=== PATIENT | male | born 1970 | race Caucasian/White ===

== ENCOUNTER 2017-01-05 10:09 | Outpatient (CLI) | payer MEDICAID ==
--- NOTE | 2017-01-05 13:38 | XRAY Report ---
FOUR VIEW RIGHT KNEE: 01/05/2017 CLINICAL INDICATION: Pain. FINDINGS: AP, lateral, bilateral oblique views of the right knee demonstrate previous ACL repair. Th ere is no evidence of acute fracture. Minimal osteoarthritis is present, with small osteophytes. IMPRESSION: MINIMAL OSTEOARTHRITIS. PREVIOUS ACL REPAIR. JOB #: [id number] EXT JOB #:[id number]
== END 2017-01-05 10:10 | disposition home or self-care (01) ==
LOC: DI.S 10:09
PROVIDERS: ATTEND Nurse Practitioner Family
DX: M17.11 Unilateral primary osteoarthritis, right knee (principal)

== ENCOUNTER 2020-03-28 13:55 | Inpatient (IN) | payer MEDICAID ==
[2020-03-28 14:54] LABS: BASOPHILS # (AUTO) 0.1 10^3/uL (0.0-0.1); BASOPHILS % (AUTO) 0.7 %; EOSINOPHILS # (AUTO) 0.2 10^3/uL (0.0-0.7); EOSINOPHILS % (AUTO) 1.7 %; HGB - HEMOGLOBIN 14.7 g/dL (14.0-18.0); LYMPHOCYTES # (AUTO) 1.6 10^3/uL (1.5-3.5); LYMPHOCYTES % (AUTO) 16.9 %; MEAN CORPUSCULAR HGB CONC 35.9 g/dL (32.0-36.0); MEAN CORPUSCULAR VOLUME 91.9 fL (80.0-94.0); MEAN PLATELET VOLUME 9.6 fL (7.4-11.4); MONOCYTES # (AUTO) 0.8 10^3/uL (0.0-1.0); MONOCYTES % (AUTO) 7.9 %; NEUTROPHILS # (AUTO) 6.9 10^3/uL (1.5-6.6); NEUTROPHILS % (AUTO) 72.3 %; PLT - PLATELET COUNT 232 10^3/uL (130-450); RED BLOOD COUNT 4.45 10^6/uL (4.70-6.10); RED CELL DISTRIBUTION WIDTH 11.4 % (12.0-15.0); WHITE BLOOD COUNT 9.6 x10^3/uL (4.8-10.8)
[2020-03-28 15:07] LABS: ALBUMIN 4.4 g/dL (3.2-5.5); ALBUMIN/GLOBULIN RATIO 1.3 (1.0-2.2); BILIRUBIN,TOTAL 1.1 mg/dL (0.2-1.0); CALCIUM 9.3 mg/dL (8.5-10.3); CREATININE 0.6 mg/dL (0.6-1.2); TOTAL PROTEIN 7.8 g/dL (6.7-8.2)
[2020-03-28] MEDS ORDERED: KETOROLAC 30 MG/ML VIAL IVP STA (16:13)
--- NOTE | 2020-03-28 16:16 | ED Physician Documentation ---
PD HPI ABD PAIN - Stated complaint Stated Complaint: ABD PX - LOWER - Chief complaint Chief Complaint: Abd Pain - History obtained from History obtained from: Patient - History of Present Illness Timing - onset: Today Timing - duration: Days (3) Timing - details: Gradual onset Pain level max: 8 Pain level now: 6 Quality: Cramping, Pain Location: All over / everywhere Radiation: No: Chest, , Lower back, Left flank, Left shoulder, Right flank, Right shoulder, Upper back Improved by: Other (nothing) Worsened by: Other (nothing) Associated symptoms: Nausea, Constipation. No: Fever, Vomiting, Hematemesis, Diarrhea, Melena, Hematochezia, Dysuria Similar symptoms before: Has not had sx before Recently seen: Not recently seen - Additional information Additional information: Diffuse abd cramping, mainly at night. States uses marijuana daily. No vomiting. No fevers. Review of Systems Ten Systems: 10 systems reviewed and negative Constitutional: denies: Fever, Chills Respiratory: denies: Cough GI: denies: Nausea, Vomiting, Hematemesis, Bloody / black stool : denies: Dysuria, Frequency Skin: denies: Rash Musculoskeletal: denies: Neck pain Neurologic: denies: Headache PD PAST MEDICAL HISTORY - Past Medical History Cardiovascular: None Respiratory: None Endocrine/Autoimmune: None GI: GERD, Other : None HEENT: None Psych: None Musculoskeletal: None Derm: Other - Past Surgical History Past Surgical History: Yes General: Other Ortho: ACL reconstruction - Present Medications Home Medications: Ambulatory Orders Medication Instructions Recorded Confirmed Hydrocodone/Acetaminophen 1 - 2 each PO Q6H PRN #15 tablet 01/10/15 [Hydrocodon-Acetaminophen 5-325] - Allergies Allergies/Adverse Reactions: Allergies Allergy/AdvReac Type Severity Reaction Status Date / Time Penicillins Allergy Rash Verified 03/28/20 14:13 - Social History Does the pt smoke?: No Smoking Status: Former smoker Does the pt drink ETOH?: Yes Does the pt have substance abuse?: No - Immunizations Immunizations are current?: Yes - POLST Patient has POLST: No PD ED PE NORMAL - Vitals Vital signs reviewed: Yes - General General: Alert and oriented X 3, No acute distress, Well developed/nourished - HEENT HEENT: Moist mucous membranes - Neck Neck: Supple, no meningeal sign - Cardiac Cardiac: RRR - Respiratory Respiratory: No respiratory distress, Clear bilaterally - Abdomen Abdomen: Soft, Non tender, Non distended - Back Back: No CVA TTP, No spinal TTP - Derm Derm: Warm and dry - Extremities Extremities: No edema - Neuro Neuro: Alert and oriented X 3 - Psych Psych: Normal mood, Normal affect Results - Vitals Vitals: Vital Signs - 24 hr 03/28/20 03/28/20 03/28/20 14:08 14:13 16:13 Temperature 36.9 C 36.8 C Heart Rate 105 H 105 H 98 Respiratory 18 18 18 Rate Blood Pressure 128/88 H 128/88 H 126/82 H O2 Saturation 97 98 99 03/28/20 18:00 Temperature 36.7 C Heart Rate 93 Respiratory 18 Rate Blood Pressure 128/83 H O2 Saturation 99 Oxygen O2 Source Room air - Labs Labs: Laboratory Tests 03/28/20 03/28/20 03/28/20 14:49 14:49 16:50 WBC 9.6 RBC 4.45 L Hgb 14.7 Hct 40.9 L MCV 91.9 MCH 33.0 H MCHC 35.9 RDW 11.4 L Plt Count 232 MPV 9.6 Neut # (Auto) 6.9 H Lymph # (Auto) 1.6 [place] # (Auto) 0.8 Eos # (Auto) 0.2 Baso # (Auto) 0.1 Absolute Nucleated RBC 0.00 Nucleated RBC % 0.0 Sodium 134 L Potassium 3.8 Chloride 95 L Carbon Dioxide 26 Anion Gap 13.0 BUN 5 L Creatinine 0.6 Estimated GFR (MDRD) 144 Glucose 97 Calcium 9.3 Total Bilirubin 1.1 H AST 30 ALT 39 Alkaline Phosphatase 62 Total Protein 7.8 Albumin 4.4 Globulin 3.4 Albumin/Globulin Ratio 1.3 Lipase 28 Urine Color YELLOW Urine Clarity CLEAR Urine pH 6.0 Ur Specific [place] <=1.005 Urine Protein NEGATIVE Urine Glucose (UA) NEGATIVE Urine Ketones NEGATIVE Urine Occult Blood NEGATIVE Urine Nitrite NEGATIVE Urine Bilirubin NEGATIVE Urine Urobilinogen 0.2 (NORMAL) Ur Leukocyte Esterase NEGATIVE Ur Microscopic Review NOT INDICATED Urine Culture Comments NOT INDICATED - Rads (name of study) CT abd/pelvis Radiology: Prelim report reviewed, EMP read contemporaneously, See rad report PD MEDICAL DECISION MAKING - ED course Complexity details: reviewed results, re-evaluated patient, considered differential, d/w patient, d/w instructional systems design consultant ED course: Patient with short segment sigmoid wall thickening and an intramural low-density rim enhancing lesion. Discussed with Dr. Thibodeaux, general surgery who will place in observation and do a colonoscopy in the morning. We discussed antibiot ics and will hold at this time. This document was made in part using voice recognition software. While efforts are made to proofread this document, sound alike and grammatical errors may occur. IMPRESSION: Short segment sigmoid wall thickening with and associated intramural low density rim-enhancing mass/collection measuring up to 1.6 cm. Differential considerations include either an intramural abscess in the setting of diverticulitis or a necrotic malignancy. Sigmoidoscopy/colonoscopy is strongly recommended, particularly if there is no clinical evidence of infecti on. Departure - Departure Disposition: ED Place in Observation Clinical Impression: Colonic mass Condition: Stable Discharge Date/Time: 03/28/20 18:45
[2020-03-28] MEDS ORDERED: IOVERSOL 320 100 ML VIAL IVP ONE ×2 (16:23→16:30)
--- NOTE | 2020-03-28 16:44 | CT Report ---
PROCEDURE: Abdomen/Pelvis W INDICATIONS: Diffuse abdominal pain and cramping CONTRAST: IV CONTRAST: Optiray 320 ml: 100 PO CONTRAST: *NO PO CONTRAST TECHNIQUE: After the administration of iodinated contrast, 5 mm thick sections acquired from the diaphragms to t he symphysis. 5 mm thick coronal and sagittal reformats were acquired. For radiation dose reduction , the following was used: automated exposure control, adjustment of mA and/or kV according to patien t size. COMPARISON: None FINDINGS: Image quality: Excellent. ABDOMEN: Lung bases: Lung bases are clear. Heart size is normal. Solid organs: Liver and spleen are normal in size and enhancement. Gallbladder unremarkable. Bilia ry system is non dilated. Pancreas enhances normally. No adrenal nodules. Kidneys demonstrate norm al size and enhancement, without hydronephrosis. Peritoneum and bowel: There is a short segment of the mid sigmoid colon which demonstrates eccentric wall thickening with very mild adjacent inflammatory fat stranding and fluid. There is an intramural low density rim-enhancing mass/collection measuring approximately 1.6 in meters maximum axial dimensi on and 1.5 cm craniocaudal (series 6 images, series 3 image 52). Nodes and vessels: No retroperitoneal or mesenteric adenopathy by size criteria. Aorta and inferior vena cava are normal in size. Miscellaneous: No ventral hernias. PELVIS: Genitourinary: Bladder wall thickness is normal. Prostate unremarkable. Miscellaneous: Threshold enlarged pelvic or neural lymph node. No inguinal hernia. Bones: No suspicious bony lesions. No vertebral body compression fractures. IMPRESSION: Short segment sigmoid wall thickening with and associated intramural low density rim-enhancing mass/c ollection measuring up to 1.6 cm. Differential considerations include either an intramural abscess in the setting of diverticulitis or a necrotic malignancy. Sigmoidoscopy/colonoscopy is strongly recomm ended, particularly if there is no clinical evidence of infection. Reviewed by: Surya Miller MD on 03/28/2020 4:43 PM PDT Approved by: Surya Miller MD on 03/28/2020 4:43 PM PDT Station ID: [id number]
[2020-03-28 16:55] LABS: BILIRUBIN,URINE NEGATIVE (NEGATIVE); GLUCOSE, URINE (UA) NEGATIVE (NEGATIVE); KETONES,URINE (UA) NEGATIVE (NEGATIVE); LEUKOCYTE ESTERASE, URINE NEGATIVE (NEGATIVE); NITRITE,URINE NEGATIVE (NEGATIVE); OCCULT BLOOD,URINE NEGATIVE (NEGATIVE); PROTEIN,URINE NEGATIVE (NEGATIVE); UROBILINOGEN,URINE 0.2 (NORMAL) E.U./dL (NORMAL)
[2020-03-28 16:59] LABS: CLARITY,URINE CLEAR (CLEAR)
[2020-03-28] MEDS ORDERED: methocarbamoL 500 MG TABLET PO PRN (18:10)
[2020-03-28] MEDS ORDERED: METOCLOPRAMIDE 10 MG/2 ML VIAL IVP PRN ×2 (18:10→19:44)
[2020-03-28] MEDS ORDERED: SODIUM CHLORIDE FLUSH 0.9% 10 ML SYRINGE IVP PRN (18:10)
[2020-03-28] MEDS ORDERED: ONDANSETRON 4 MG/2 ML VIAL IVP PRN ×2 (18:10→22:00)
[2020-03-28] MEDS ORDERED: PEG 3350/NA SULF,BICARB,CL/KCL 4,000 ML BOTTLE PO ONE ×2 (18:18)
--- NOTE | 2020-03-28 18:20 | HISTORY & PHYSICAL EXAMINATION ---
Chief Complaint - Chief Complaint Chief Complaint: Abdominal pain and concerning CT scan for malignancy versus mural abscess f Abdominal Pain HPI - Admitted From Admitted from: ED - History Obtained From History obtained from: Patient Exam limitations: No limitations - History of Present Illness Severity at the worst: Moderate Pain Quality: Dull, Aching, Throbbing Timing: Gradual onset HPI Comment/Other: 49-year-old male who presents to ER after several days of worsening abdominal discomfort. Abdominal pain and concerning CT scan for malignancy versus mural abscess from diverticular disease. No family history of colorectal cancer, no family history of inflammatory bowel disease. No recent sick contacts or other concerning features. Patient denies any bright red blood per rectum or other recent changes, however he does indeed report a significant change in caliber of stool over the last several days. He reports most of the pain is in the evening and ultimately is intolerable, progressively worsening these last few days for which inspired his ER visit. Patient is a non-smoker, drinks only socially. Reports only marijuana use infrequently. PMH/PSH - Past Medical History Cardiovascular: positive: None Respiratory: positive: None Endocrine/Autoimmune: positive: None GI: positive: GERD, Other : positive: None HEENT: positive: None Psych: positive: None Musculoskeletal: positive: None Derm: positive: Other MRSA Hx?: No - Past Surgical History General: positive: Other Ortho: positive: ACL reconstruction Social & Family Hx - Social History Does the pt smoke?: No Smoking Status: Former smoker Does the pt drink ETOH?: Yes Does the pt have substance abuse?: No Substance Use and Type: Marijuana - POLST Patient has POLST: No Meds/Allgy - Home Medications Home Medications: Ambulatory Orders Medication Instructions Recorded Confirmed Cyclobenzaprine [Flexeril] 10 mg PO TID PRN 03/29/20 - Allergies Allergies/Adverse Reactions: Allergies Allergy/AdvReac Type Severity Reaction Status Date / Time Penicillins Allergy Rash Verified 03/28/20 14:13 Review of Systems - Constitutional Constitutional: reports: Fatigue - Cardiovascular Cariovascular: denies: Irregular heart rate - Respiratory Respiratory: denies: Cough, Sputum production, Wheezing, Snoring, Hemoptysis - Gastrointestinal Gastrointestinal: reports: Abdominal pain, Abdominal distention. denies: Black stools, Bloody stools, Nausea, Vomiting - Genitourinary Genitourinary: denies: Dysuria Exam - Vital Signs Vital Signs: Vital Signs x48h Temp Pulse Resp BP Pulse Ox 03/28/20 18:00 36.7 C 93 18 128/83 H 99 03/28/20 16:13 36.8 C 98 18 126/82 H 99 03/28/20 14:13 105 H 18 128/88 H 98 03/28/20 14:08 36.9 C 105 H 18 128/88 H 97 - Physical Exam General Appearance: positive: No acute distress, Alert, Mild distress Eyes Bilateral: positive: Normal inspection, PERRL, EOMI ENT: positive: ENT inspection nml Neck: positive: Nml inspection Respiratory: positive: Chest non-tender, No respiratory distress, Breath sounds nml. negative: Wheezes, Rales, Rhonchi Cardiovascular: positive: Regular rate & rhythm Abdomen: positive: Tenderness. negative: Guarding, Rebound Extremities: positive: Non-tender, Full ROM Neurologic/Psychiatric: positive: Oriented x3, CN's nml (2-12) Results - Lab Results Fish Bones: 03/28/20 14:49 03/28/20 14:49 Other Lab Results: Lab Results x24hrs 03/28/20 03/28/20 03/28/20 Range/Units 16:50 14:49 14:49 WBC 9.6 (4.8-10.8) x10^3/uL RBC 4.45 L (4.70-6.10) 10^6/uL Hgb 14.7 (14.0-18.0) g/dL Hct 40.9 L (42.0-52.0) % MCV 91.9 (80.0-94.0) fL MCH 33.0 H (27.0-31.0) pg MCHC 35.9 (32.0-36.0) g/dL RDW 11.4 L (12.0-15.0) % Plt Count 232 (130-450) 10^3/uL MPV 9.6 (7.4-11.4) fL Neut # (Auto) 6.9 H (1.5-6.6) 10^3/uL Lymph # (Auto) 1.6 (1.5-3.5) 10^3/uL [place] # (Auto) 0.8 (0.0-1.0) 10^3/uL Eos # (Auto) 0.2 (0.0-0.7) 10^3/uL Baso # (Auto) 0.1 (0.0-0.1) 10^3/uL Absolute Nucleated RBC 0.00 x10^3/uL Nucleated RBC % 0.0 /100WBC Sodium 134 L (135-145) mmol/L Potassium 3.8 (3.5-5.0) mmol/L Chloride 95 L (101-111) mmol/L Carbon Dioxide 26 (21-32) mmol/L Anion Gap 13.0 (6-13) BUN 5 L (6-20) mg/dL Creatinine 0.6 (0.6-1.2) mg/dL Estimated GFR (MDRD) 144 (>89) Glucose 97 (70-100) mg/dL Calcium 9.3 (8.5-10.3) mg/dL Total Bilirubin 1.1 H (0.2-1.0) mg/dL AST 30 (10-42) IU/L ALT 39 (10-60) IU/L Alkaline Phosphatase 62 (42-121) IU/L Total Protein 7.8 (6.7-8.2) g/dL Albumin 4.4 (3.2-5.5) g/dL Globulin 3.4 (2.1-4.2) g/dL Albumin/Globulin Ratio 1.3 (1.0-2.2) Lipase 28 (22-51) U/L Urine Color YELLOW Urine Clarity CLEAR (CLEAR) Urine pH 6.0 (5.0-7.5) PH Ur Specific [place] <=1.005 (1.002-1.030) Urine Protein NEGATIVE (NEGATIVE) mg/dL Urine Glucose (UA) NEGATIVE (NEGATIVE) mg/dL Urine Ketones NEGATIVE (NEGATIVE) mg/dL Urine Occult Blood NEGATIVE (NEGATIVE) Urine Nitrite NEGATIVE (NEGATIVE) Urine Bilirubin NEGATIVE (NEGATIVE) Urine Urobilinogen 0.2 (NORMAL) (NORMAL) E.U./dL Ur Leukocyte Esterase NEGATIVE (NEGATIVE) Ur Microscopic Review NOT INDICATED Urine Culture Comments NOT INDICATED - Diagnostic Imaging Results Diagnostic Imaging Results: positive: Final report reviewed Sepsis Event Note (H) - Evaluation Current Stage of Sepsis: Sepsis Possible source of Sepsis: positive: GI tract/intra-abdominal Impression/Plan - Problem List Problem List: 49-year-old male with CT finding as per EMR. Essentially mural abscess within the sigmoid colon. Abdominal pain and concerning CT scan for malignancy versus mural abscess from diverticular disease. Patient with mural fluid collection within the sigmoid colon together with sigmoid diverticulosis. Concern for malignancy versus perforated contained diverticulitis. In this type for insulin will be crucial to ascertain if this is malignancy as this would require urgent operative intervention to avert intra-abdominal seeding of a currently contained malignancy. In the setting of diverticular disease we would proceed with oral likely IV antibiotics and plan an interval colectomy hopefully in the absence of proximal diversion. Plan going forward as follows: 1. Bowel rest IV fluids IV antibiotics 2. Plan a.m. colonoscopy
[2020-03-28] MEDS ORDERED: metroNIDAZOLE 500 MG/100 ML 500 MG/100 ML BAG IV SCH (19:00)
[2020-03-28] MEDS ORDERED: D5NS W/20 MEQ KCL 1,000 ML IV SCH (19:00)
[2020-03-28] MEDS ORDERED: ACETAMINOPHEN 1,000 MG/100 ML 100 ML IV SCH (19:00)
[2020-03-28] MEDS ORDERED: CIPROFLOXACIN 400 MG/200 ML 400 MG/200 ML BAG IV SCH (19:00)
[2020-03-28] MEDS: D5NS W/20 MEQ KCL 1,000 ML IV SCH (20:23)
[2020-03-28] MEDS: polyethylene glycoL 3350 17 GM PACKET PO SCH (20:23)
[2020-03-28] MEDS: DOCUSATE SODIUM 100 MG CAPSULE PO SCH (20:23)
[2020-03-28] MEDS ORDERED: polyethylene glycoL 3350 17 GM PACKET PO SCH (21:00)
[2020-03-28] MEDS ORDERED: DOCUSATE SODIUM 100 MG CAPSULE PO SCH (21:00)
[2020-03-28] MEDS ORDERED: HEPARIN 5,000 UNIT/ML VIAL SUBQ SCH (22:00)
[2020-03-28] MEDS: HEPARIN 5,000 UNIT/ML VIAL SUBQ SCH (22:38)
[2020-03-28] MEDS: LORazepam 2 MG/ML VIAL IVP PRN (22:39)
[2020-03-29] MEDS: ACETAMINOPHEN 1,000 MG/100 ML 100 ML IV SCH ×4 (00:51→18:46)
[2020-03-29] MEDS ORDERED: SODIUM CHLORIDE FLUSH 0.9% 10 ML SYRINGE IVP SCH (01:00)
[2020-03-29] MEDS: metroNIDAZOLE 500 MG/100 ML 500 MG/100 ML BAG IV SCH ×3 (03:08→20:35)
[2020-03-29] MEDS: SODIUM CHLORIDE FLUSH 0.9% 10 ML SYRINGE IVP SCH ×3 (04:23→16:23)
[2020-03-29] MEDS: LORazepam 2 MG/ML VIAL IVP PRN ×3 (04:38→22:16)
[2020-03-29] MEDS: SODIUM CHLORIDE FLUSH 0.9% 10 ML SYRINGE IVP PRN ×2 (04:39→13:26)
[2020-03-29] MEDS: D5NS W/20 MEQ KCL 1,000 ML IV SCH ×2 (05:50→17:36)
[2020-03-29] MEDS: HEPARIN 5,000 UNIT/ML VIAL SUBQ SCH ×3 (06:06→22:16)
[2020-03-29] MEDS: CIPROFLOXACIN 400 MG/200 ML 400 MG/200 ML BAG IV SCH ×2 (06:48→19:28)
[2020-03-29] MEDS ORDERED: PROPOFOL 500 MG/50 ML 500 MG/50 ML VIAL ONE (08:43)
[2020-03-29] MEDS ORDERED: ePHEDrine 50 MG/ML VIAL IVP ONE (08:44)
--- NOTE | 2020-03-29 08:48 | ANESTHESIA ---
Pre-Anesthesia VS, & Labs - Diagnosis Abdominal pain, sigmoid mass vs. abscess, GERD, PCN allergy - Procedure Colonoscopy Vital Signs: Temp Pulse Resp BP Pulse Ox 37.1 C 66 16 111/75 98 03/29/20 07:42 03/29/20 07:42 03/29/20 07:42 03/29/20 07:42 03/29/20 07:42 Height 5 ft 7 in Weight (kg) 61.235 kg Body Mass Index 21.1 - Lab Results Current Lab Results: Laboratory Tests 03/28/20 14:49: Sodium 134 L, Potassium 3.8, Chloride 95 L, Carbon Dioxide 26, Anion Gap 13.0, BUN 5 L, Creatinine 0.6, Estimated GFR (MDRD) 144, Glucose 97, Calcium 9.3, Total Bilirubin 1.1 H, AST 30, ALT 39, Alkaline Phosphatase 62, T otal Protein 7.8, Albumin 4.4, Globulin 3.4, Albumin/Globulin Ratio 1.3, Lipase 28 03/28/20 14:49: WBC 9.6, RBC 4.45 L, Hgb 14.7, Hct 40.9 L, MCV 91.9, MCH 33.0 H, MCHC 35.9, RDW 11.4 L, Plt Count 232, MPV 9.6, Neut # (Auto) 6.9 H, Lymph # (Auto) 1.6, [place] # (Auto) 0.8, Eos # (Auto) 0.2, Baso # (Auto) 0.1, Absolute Nucleated RBC 0.00, Nucleated RBC % 0.0 Fish Bones: 03/28/20 14:49 03/28/20 14:49 Home Medications and Allergies Active Medications Docusate Sodium (Colace 100mg Capsule) 100 mg PO BID [facility] Last Admin: 03/28/20 20:23 Dose: 100 mg Documented by: Heparin Sodium (Porcine) () 5,000 unit SUBQ TID [facility] Last Admin: 03/29/20 06:06 Dose: 5,000 unit Documented by: Potassium Chloride/Dextrose/Sod Cl () 1,000 mls @ 125 mls/hr IV .Q8H [facility] Last Infusion: 03/29/20 07:48 Dose: 125 mls/hr Documented by: Ciprofloxacin (Cipro 400 Mg/200 Ml) 400 mg in 200 mls @ 200 mls/hr IV Q12H [facility] Last Infusion: 03/29/20 07:48 Dose: Infused Documented by: Acetaminophen (Ofirmev) 100 mls @ 400 mls/hr IV Q6H [facility] Last Infusion: 03/29/20 06:37 Dose: Infused Documented by: Metronidazole (Flagyl 500 Mg/100 Ml) 500 mg in 100 mls @ 100 mls/hr IV Q8H [facility] Last Infusion: 03/29/20 04:08 Dose: Infused Documented by: Lorazepam (Ativan Inj (Vial)) 0.5 mg IVP Q6H PRN PRN Reason: Spasms/ANXIETY Last Admin: 03/29/20 04:38 Dose: 0.5 mg Documented by: Methocarbamol (Robaxin) 500 mg PO Q6HR PRN PRN Reason: Spasms Metoclopramide HCl (Reglan Inj) 10 mg IVP Q6HR PRN PRN Reason: Nausea / Vomiting Ondansetron HCl (Zofran Inj) 4 mg IVP Q6H PRN PRN Reason: Nausea / Vomiting Polyethylene Glycol (Miralax) 17 gm PO BID [facility] Last Admin: 03/28/20 20:23 Dose: 17 gm Documented by: Sodium Chloride (Normal Saline Flush 0.9%) 10 ml IVP 0100,0900,1700 [facility] Last Admin: 03/29/20 04:23 Dose: Not Given Documented by: Sodium Chloride (Normal Saline Flush 0.9%) 10 ml IVP PRN PRN PRN Reason: NEEDED PER PROVIDER ORDERS Last Admin: 03/29/20 04:39 Dose: 10 ml Documented by: Allergies/Adverse Reactions: Allergies Allergy/AdvReac Type Severity Reaction Status Date / Time Penicillins Allergy Rash Verified 03/28/20 14:13 Anes History & Medical History - Anesthetic History Anesthesia Complications: reports: No previous complications Family history of Anesthesia Complications: Denies Family history of Malignant Hyperthermia: Denies - Medical History Cardiovascular: reports: None Pulmonary: reports: None Gastrointestinal: reports: GERD, Other Urinary: reports: None Neuro: reports: None Musculoskeletal: reports: None Endocrine/Autoimmune: reports: None Blood Disorders: reports: None Skin: reports: Other Smoking Status: Former smoker Psychosocial: reports: No issues indicated - Surgical History Orthopedic: ACL reconstruction Plan Anesthesia Type: MAC Consent for Procedure(s) Verified and Reviewed: Yes Code Status: Attempt Resuscitation ASA classification: 2-Mild systemic disease Is this case an emergency?: Yes (Per surgeon)
[2020-03-29] MEDS: DOCUSATE SODIUM 100 MG CAPSULE PO SCH ×2 (09:29→20:35)
[2020-03-29] MEDS: polyethylene glycoL 3350 17 GM PACKET PO SCH ×2 (09:29→20:12)
[2020-03-29] MEDS ORDERED: PROPOFOL 200 MG/20 ML VIAL IVP ONE ×2 (10:10→18:15)
[2020-03-29] MEDS ORDERED: MIDAZOLAM 2 MG/2 ML VIAL IVP ONE ×2 (10:10→18:15)
--- NOTE | 2020-03-29 11:06 | ANESTHESIA POST OP EVALUATION ---
Anesthesia Post Eval - Post Anesthesia Eval Vitals: Last Vital Signs Temp 36.8 C 03/29/20 10:56 Pulse 59 L 03/29/20 10:56 Resp 18 03/29/20 10:56 BP 105/70 03/29/20 10:56 Pulse Ox 100 03/29/20 10:56 CV Function Including HR & BP: positive: Stable Pain Control: positive: Satisfactory Nausea & Vomiting: positive: Negative Mental Status: positive: Baseline Respiratory Status: Airway Patent Hydration Status: Satisfactory Anesthesia Complications: positive: None
--- NOTE | 2020-03-29 11:08 | PROVIDER PROGRESS NOTE ---
Progress Note 49-year-old male with recent onset of acute change in bowel habits, reporting narrowed caliber. Moreover patient complaining of significant abdominal discomfort. Imaging was concerning for either necrotic malignancy with contained perforation in the setting of a mural abscess versus diverticular disease. I would add to this the possibility of inflammatory bowel disease as well. Patient is status post colonoscopy with the following findings: 1. Normal terminal ileum, biopsies obtained 2. Significant sigmoid stricturing, benign-appearing, with extensive inflammatory changes consistent with diverticulitis, biopsied 3. Normal colon otherwise other than extensive tortuosity with sparse diverticulosis favoring the left 4. No bleeding appreciated In this setting we will proceed with bowel rest, IV antibiotics, given the absence of any ability to proceed with drainage in the setting of a mural abscess which would potentially propagate a colocutaneous fistula, we would be best served with consideration for IV antibiotics and interval reimaging. We will also consider resection given the patient's age and significance of his presentation. Hopefully we can defer this without necessary proximal diversion after an appropriate therapeutic course of IV antibiotics and time. Thus plan going forward is as follows: 1. Bowel rest, IV fluids, IV antibiotics. 2. Consideration for PICC line and outpatient antibiotics 3. Will likely necessitate interval resection, hopefully without proximal diversion
--- NOTE | 2020-03-29 15:09 | PHARMACY PROGRESS NOTE ---
- Best Possible Medication History Admit Date and Time: 03/28/201809 Processed by: Pharmacy Medication History completed: Yes Patient Interview: Completed Secondary Source(s): Pharmacy records, Insurance records As the person ultimately responsible for medication therapy, providers are able to order a medication from an existing home medication list in [facility] via the "Reconcile Routine" prior to Confirmation of that medication by technical support manager. Such practice is discouraged except when the physician, in their clinical judgment, deems that a medical need exists for a medication without regard to previous use.
[2020-03-29] MEDS: methocarbamoL 500 MG TABLET PO PRN ×2 (17:36→23:56)
[2020-03-30] MEDS: ACETAMINOPHEN 1,000 MG/100 ML 100 ML IV SCH ×4 (01:44→18:40)
[2020-03-30] MEDS: SODIUM CHLORIDE FLUSH 0.9% 10 ML SYRINGE IVP SCH ×4 (02:00→23:49)
[2020-03-30] MEDS: metroNIDAZOLE 500 MG/100 ML 500 MG/100 ML BAG IV SCH ×3 (02:51→18:41)
[2020-03-30] MEDS: D5NS W/20 MEQ KCL 1,000 ML IV SCH ×2 (05:08→16:23)
[2020-03-30] MEDS: HEPARIN 5,000 UNIT/ML VIAL SUBQ SCH ×3 (06:41→22:17)
[2020-03-30] MEDS: CIPROFLOXACIN 400 MG/200 ML 400 MG/200 ML BAG IV SCH ×2 (07:05→20:15)
[2020-03-30] MEDS: DOCUSATE SODIUM 100 MG CAPSULE PO SCH ×2 (09:32→19:22)
[2020-03-30] MEDS: polyethylene glycoL 3350 17 GM PACKET PO SCH ×2 (09:32→19:22)
[2020-03-30] MEDS: methocarbamoL 500 MG TABLET PO PRN ×3 (09:35→23:47)
--- NOTE | 2020-03-30 10:58 | PROVIDER PROGRESS NOTE ---
Progress Note Subjective: Patient postop day #1 status post lower endoscopy presenting with the following history. He has persistent abdominal cramping which is understandable in the setting of his significant stenosis. This is inflammatory and was ruled out for malignancy on lower endoscopy with results below. He remains on antibiotics and bowel rest. 49-year-old male with recent onset of acute change in bowel habits, reporting narrowed caliber. Moreover patient complaining of significant abdominal discomfort. Imaging was concerning for either necrotic malignancy with contained perforation in the setting of a mural abscess versus diverticular disease. I would add to this the possibility of inflammatory bowel disease as well. Patient is status post colonoscopy with the following findings: 1. Normal terminal ileum, biopsies obtained 2. Significant sigmoid stricturing, benign-appearing, with extensive inflamma tory changes consistent with diverticulitis, biopsied 3. Normal colon otherwise other than extensive tortuosity with sparse diverticulosis favoring the left 4. No bleeding appreciated Objective Afebrile vital signs are stable Alert awake and oriented x3 Lungs clear to auscultation bilaterally Regular rate and rhythm Abdomen soft nontender diffusely, tender to deep palpation in the left lower quadrant, no rebound no guarding Moving all extremities no sensorimotor deficits Assessment and plan 49-year-old male presenting with perforated complicated diverticulitis with intramural abscess. Initial concerns for potential malignancy ruled out by colonoscopy for which he is postoperative day #1. In this setting we will proceed with bowel rest, IV antibiotics, given the absence of any ability to proceed with drainage in the setting of a mural abscess which would potentially propagate a colocutaneous fistula, we would be best served with consideration for IV antibiotics and interval reimaging. We will also consider resection given the patient's age and significance of his presentation. Hopefully we can defer this without necessary proximal diversion after an appropriate therapeutic course of IV antibiotics and time. Thus plan going forward is as follows: 1. Bowel rest, IV fluids, IV antibiotics. 2. Consideration for PICC line and outpatient antibiotics 3. Proceed with CAT scan today to reevaluate for propagation and decide if IV versus oral antibiotics will suffice. 4. Will likely necessitate interval resection, hopefully without proximal diversion Please note this note was transcribed through voice recognition software. Inadvertent errors might be present in spite of review and editing. Many thanks for your attention. Please note there was a delay in signing this note as password and access was interrupted overnight.
[2020-03-30] MEDS: LORazepam 2 MG/ML VIAL IVP PRN ×2 (11:10→22:12)
[2020-03-30] MEDS: SODIUM CHLORIDE FLUSH 0.9% 10 ML SYRINGE IVP PRN (11:11)
[2020-03-31] MEDS ORDERED: LORazepam 2 MG/ML VIAL IVP PRN (01:02)
[2020-03-31] MEDS ORDERED: HYDROmorphone 0.5 MG/0.5 ML SYRINGE IVP ONE (01:04)
[2020-03-31] MEDS: ACETAMINOPHEN 1,000 MG/100 ML 100 ML IV SCH ×3 (02:35→13:29)
[2020-03-31] MEDS: D5NS W/20 MEQ KCL 1,000 ML IV SCH ×2 (02:57→14:47)
[2020-03-31] MEDS: metroNIDAZOLE 500 MG/100 ML 500 MG/100 ML BAG IV SCH ×2 (02:57→12:05)
[2020-03-31] MEDS: CIPROFLOXACIN 400 MG/200 ML 400 MG/200 ML BAG IV SCH (06:30)
[2020-03-31] MEDS: HEPARIN 5,000 UNIT/ML VIAL SUBQ SCH ×2 (06:35→13:30)
[2020-03-31] MEDS: polyethylene glycoL 3350 17 GM PACKET PO SCH (09:34)
[2020-03-31] MEDS: SODIUM CHLORIDE FLUSH 0.9% 10 ML SYRINGE IVP SCH ×2 (09:34→15:56)
[2020-03-31] MEDS: DOCUSATE SODIUM 100 MG CAPSULE PO SCH (09:34)
[2020-03-31] MEDS ORDERED: IOVERSOL 320 100 ML VIAL IVP ONE ×2 (10:12→13:03)
[2020-03-31] MEDS ORDERED: IOVERSOL 320 50 ML VIAL ONE (10:13)
[2020-03-31] MEDS ORDERED: IOVERSOL 320 50 ML VIAL PO ONE (13:03)
--- NOTE | 2020-03-31 14:25 | CT Report ---
PROCEDURE: Abdomen/Pelvis W INDICATIONS: evaluate for perforation diverticulitis CONTRAST: IV CONTRAST: Optiray 320 ml: 100 PO CONTRAST: Optiray 320 ml50 TECHNIQUE: After the administration of nonionic contrast, 5 mm thick sections acquired from the diaphragms to th e symphysis. 5 mm thick coronal and sagittal reformats were acquired. For radiation dose reduction, the following was used: automated exposure control, adjustment of mA and/or kV according to patient size. COMPARISON: Similar CT 03/28/2020 reviewed. FINDINGS: Image quality: Excellent. ABDOMEN: Lung bases: Lung bases are clear. Heart size is normal. Solid organs: Liver and spleen are normal in size and enhancement. Gallbladder Biliary system is non dilated. Pancreas enhances normally. No adrenal nodules. Kidneys demonstrate normal size an d enhancement, without hydronephrosis. Peritoneum and bowel: Bowel loops demonstrate normal wall thickness and caliber. No free fluid or a ir. Nodes and vessels: No retroperitoneal or mesenteric adenopathy by size criteria. Aorta and inferior vena cava are normal in size. Miscellaneous: No ventral hernias. PELVIS: Genitourinary: Bladder wall thickness is normal. Miscellaneous: No inguinal hernias or adenopathy. Previously identified diverticulitis involving the proximal half of the sigmoid colon has slightly improved, with a lesser degree of mural thickening, and there is no sign of contained or free perforation, or peridiverticular abscess. Bones: No suspicious bony lesions. No vertebral body compression fractures. IMPRESSION: Slight improvement in acute diverticulitis proximal half of the sigmoid colon, without e vidence of interval development of peridiverticular abscess or perforation. Reviewed by: Maverick Kamara MD on 03/31/2020 2:24 PM PDT Approved by: Maverick Kamara MD on 03/31/2020 2:24 PM PDT Station ID: [id number]
--- NOTE | 2020-03-31 17:05 | Discharge Plan ---
Discharge Plan Problem Reviewed?: No Disposition: 01 Home, Self Care Condition: Stable Prescriptions: Ciprofloxacin HCl [Cipro] 500 mg PO BID #28 tablet metroNIDAZOLE [Flagyl] 500 mg PO TID #42 tablet Diet: Soft Activity Restrictions: No Restrictions Shower Restrictions: No Driving Restrictions: No Instruction Topics: Cellulitis Dc, Diverticulitis Dc Health Concerns: DISCHARGE INSTRUCTIONS TEMPLATE: Call or proceed to clinic/ER for fevers, severe pain, nausea, vomiting, inability to pass flatus/stool, bleeding, wound redness/discharge, weakness, excessively loose stool/diarrhea, or for any other reasonably worrisome symptom or concern. Soft diet, low residue, no raw vegetables, avoid high fiber foods. Colace 100mg by mouth twice to three times daily while taking narcotic pain medication. If no bowel movement in 24-48hr, may take 17g Miralax in 8oz water twice daily until bowel movement. Continue antibiotics for 2 weeks, Cipro and Flagyl as prescribed. Consider probiotics. Follow up in clinic in 2 weeks. Patient to follow-up with Dr. Carrol Aggarwal surgical outpatient clinic. He will also need repeat imaging as well. He is likely a candidate for interval segmental resection. Follow up with primary care provider and/or medical subspecialist following discharge as well. Assessment: She underwent CT imaging today in follow-up with no evidence of propagation of abscess, development of pericolic infectious sequelae, and overall stable impression. In the setting defer IV antibiotics and PICC line placement and will continue with oral antibiotics and outpatient follow-up. Acute Additional Instructions or Follow Up instructions: DISCHARGE INSTRUCTIONS TEMPLATE: Call or proceed to clinic/ER for fevers, severe pain, nausea, vomiting, inability to pass flatus/stool, bleeding, wound redness/discharge, weakness, excessively loose stool/diarrhea, or for any other reasonably worrisome symptom or concern. Soft diet, low residue, no raw vegetables, avoid high fiber foods. Colace 100mg by mouth twice to three times daily while taking narcotic pain medication. If no bowel movement in 24-48hr, may take 17g Miralax in 8oz water twice daily until bowel movement. Continue antibiotics for 2 weeks, Cipro and Flagyl as prescribed. Consider probiotics. Follow up in clinic in 2 weeks. Patient to follow-up with Dr. Carrol Aggarwal surgical outpatient clinic. He will also need repeat imaging as well. He is likely a candidate for interval segmental resection. Follow up with primary care provider and/or medical subspecialist following discharge as well. No Smoking: If you smoke, Please STOP! Call for help. Follow-up with: Meme Anguiano ARNP [Primary Care Provider] -
--- NOTE | 2020-03-31 17:13 | DISCHARGE SUMMARY ---
"Discharge Summary Admit Date: 03/28/20 Discharge Date: 03/31/20 Discharging Provider: Morelia Code Status: Attempt Resuscitation Condition at Discharge: Stable Discharge Disposition: 01 Home, Self Care - DIAGNOSES Admission Diagnoses: Complicated Diverticulitis Concern for malignancy Discharge Diagnoses with Status of Each Condition: Complicated Diverticulitis - Present, undergoing outpatient therapy after diagnosis Ruled out malignancy - HPI History of Present Illness: 49-year-old male who presents to ER after several days of worsening abdominal discomfort. Abdominal pain and concerning CT scan for malignancy versus mural abscess from diverticular disease. No family history of colorectal cancer, no family history of inflammatory bowel disease. No recent sick contacts or other concerning features. Patient denies any bright red blood per rectum or other recent changes, however he does indeed report a significant change in caliber of stool over the last several days. He reports most of the pain is in the evening and ultimately is intolerable, progressively worsening these last few days for which inspired his ER visit. Patient is a non-smoker, drinks only socially. Reports only marijuana use infrequently. - CONSULTS | PROCEDURES Procedures: Patient is status post colonoscopy with the following findings: 1. Normal terminal ileum, biopsies obtained 2. Significant sigmoid stricturing, benign-appearing, with extensive inflammatory changes consistent with diverticulitis, biopsied 3. Normal colon otherwise other than extensive tortuosity with sparse diverticulosis favoring the left 4. No bleeding appreciated - HOSPITAL COURSE Hospital Course: 49-year-old male with recent onset of acute change in bowel habits, reporting narrowed caliber. Moreover patient complaining of significant abdominal discomfort. Imaging was concerning for either necrotic malignancy with contained perforation in the setting of a mural abscess versus diverticular disease. I would add to this the possibility of inflammatory bowel disease as well. Patient is status post colonoscopy with the following findings: 1. Normal terminal ileum, biopsies obtained 2. Significant sigmoid stricturing, benign-appearing, with extensive inflammatory changes consistent with diverticulitis, biopsied 3. Normal colon otherwise other than extensive tortuosity with sparse diverticulosis favoring the left 4. No bleeding appreciated In this setting we will proceed with bowel rest, IV antibiotics, given the absence of any ability to proceed with drainage in the setting of a mural abscess which would potentially propagate a colocutaneous fistula, we would be best served with consideration for IV antibiotics and interval reimaging. We will also consider resection given the patient's age and significance of his pre sentation. Hopefully we can defer this without necessary proximal diversion after an appropriate therapeutic course of IV antibiotics and time. Thus plan going forward is as follows: 1. Bowel rest, IV fluids, IV antibiotics. 2. Consideration for PICC line and outpatient antibiotics 3. Will likely necessitate interval resection, hopefully without proximal diversion Patient after having undergone colonoscopy was repeated for his imaging on hospital day #3 which is as follows for results. Repeat CT of abdomen pelvis showed no significant propagation of mural fluid collection, with no david-colonic fluid collection or evidence of free perforation. In this setting we felt confident that the patient could be discharged on oral antibiotics as opposed to IV antibiotics with PICC line. In the setting the patient will be maintained on oral antibiotics for 2 weeks with Cipro and Flagyl. Follow-up with Dr. Carrol Aggarwal in clinic. Patient would necessarily be followed up for pathology. Ultimately we will recommend interval colectomy given his age and his findings/presentation. - ALLERGIES Allergies/Adverse Reactions: Allergies Allergy/AdvReac Type Severity Reaction Status Date / Time Penicillins Allergy Rash Verified 03/28/20 14:13 - MEDICATIONS Home Medications: Ambulatory Orders Medication Instructions Recorded Confirmed Cyclobenzaprine [Flexeril] 10 mg PO TID PRN 03/29/20 03/29/20 Multivit-Min/Iron/Folic Acid/K 1 tab PO DAILY 03/29/20 03/29/20 [Adults Multivitamin Tablet] Ciprofloxacin HCl [Cipro] 500 mg PO BID #28 tablet 03/31/20 Ciprofloxacin HCl [Cipro] 500 mg PO BID #28 tablet 03/31/20 methocarbamoL [Robaxin] 500 mg PO Q6HR PRN tablet 03/31/20 metroNIDAZOLE [Flagyl] 500 mg PO TID #42 tablet 03/31/20 metroNIDAZOLE [Flagyl] 500 mg PO TID #42 tablet 03/31/20 - PHYSICAL EXAM AT DISCHARGE General Appearance: positive: No acute distress, Anxious Eyes Bilateral: positive: Normal inspection, PERRL, EOMI ENT: positive: ENT inspection nml Neck: positive: Nml inspection Respiratory: positive: Chest non-tender, No respiratory distress, Breath sounds nml. negative: Wheezes, Rales, Rhonchi Cardiovascular: positive: Regular rate & rhythm Abdomen: positive: Non-tender, No distention, Other (Mild tenderness to deep palpation in the left lower quadrant). negative: Guarding, Rebound Skin: positive: Color nml Extremities: positive: Non-tender, Full ROM, Nml appearance Neurologic/Psychiatric: positive: Oriented x3, CN's nml (2-12) - LABS Result Diagrams: 03/28/20 14:49 03/28/20 14:49 - DIAGNOSTIC IMAGING Diagnostic Imaging Results: Other Diagnostic Imaging Results Comments: Repeat CT of abdomen pelvis showed no significant propagation of mural fluid collection, with no david-colonic fluid collection or evidence of free perforation. In this setting we felt confident that the patient could be discharged on oral antibiotics as opposed to IV antibiotics with PICC line. - SEPSIS Current Stage of Sepsis: Sepsis Possible source of Sepsis: GI tract/intra-abdominal - FOLLOW UP Follow Up: He underwent CT imaging today in follow-up with no evidence of propagation of abscess, development of pericolic infectious sequelae, and overall stable i mpression. In the setting defer IV antibiotics and PICC line placement and will continue with oral antibiotics and outpatient follow-up. Acute Additional Instructions or Follow Up instructions: DISCHARGE INSTRUCTIONS TEMPLATE: Call or proceed to clinic/ER for fevers, severe pain, nausea, vomiting, inability to pass flatus/stool, bleeding, wound redness/discharge, weakness, excessively loose stool/diarrhea, or for any other reasonably worrisome symptom or concern. Soft diet, low residue, no raw vegetables, avoid high fiber foods. Colace 100mg by mouth twice to three times daily while taking narcotic pain medication. If no bowel movement in 24-48hr, may take 17g Miralax in 8oz water twice daily until bowel movement. Continue antibiotics for 2 weeks, Cipro and Flagyl as prescribed. Consider probiotics. Follow up in clinic in 2 weeks. Patient to follow-up with Dr. Carrol Aggarwal surgical outpatient clinic. He will also need repeat imaging as well. He is likely a candidate for interval segmental resection."
[2020-03-31 17:21] VITALS: BP 136/94
== END 2020-03-31 18:00 | disposition home or self-care (01) | DRG 379 ==
LOC: ED 13:55 → MS2 18:10 → ED 18:45 → OBSVTOIN 03-30 10:44
PROVIDERS: ADMIT Surgery; ATTEND Surgery
PROC: 0DBE8ZX Excision of Large Intestine, Via Natural or Artificial Opening Endoscopic, Diagnostic (ICD-10-PCS; principal; 2020-03-30)
DX: K57.33 Diverticulitis of large intestine without perforation or abscess with bleeding (principal); Z87.891 Personal history of nicotine dependence; Z72.89 Other problems related to lifestyle
CPT/HCPCS: 36415; 45380; 74177; 80053; 81003; 83690; 85025; 96365; 96366; 96367; 96368; 96372; 96375; 96376; 99285; A9270; G0378; J0131; J1170; J2060; J2765; Q9967; 81001; 87086

== ENCOUNTER 2020-05-30 10:37 | Outpatient (CLI) | payer MEDICAID ==
[~2020-05-30 10:37] MED LIST: IOVERSOL 320 100 ML VIAL IVP ONE; IOVERSOL 320 50 ML VIAL ONE
[2020-05-30] MEDS ORDERED: IOVERSOL 320 50 ML VIAL PO ONE (12:10)
[2020-05-30] MEDS ORDERED: IOVERSOL 320 100 ML VIAL IVP ONE (12:10)
--- NOTE | 2020-05-30 12:56 | Ultrasound Report ---
PROCEDURE: Duplex Ext Veins Left INDICATIONS: Colitis or thrombophlebitis of the right upper extremity TECHNIQUE: Real-time imaging, as well as color and pulse Doppler interrogation, were performed of the right uppe r tributary veins from the brachiocephalic to the wrist. COMPARISON: None. FINDINGS: There is occlusion of the basilic vein in the distal upper arm without extension into the a ntecubital fossa. Remaining veins of the right upper chest cavity are patent. The deep veins of the a rm including the brachial, axillary, subclavian, and internal jugular veins are patent on the right. IMPRESSION: Superficial venous thrombosis in the basilic vein. Reviewed by: Surya Miller MD on 05/30/2020 12:54 PM PDT Approved by: Surya Miller MD on 05/30/2020 12:54 PM PDT Station ID: [id number]
--- NOTE | 2020-05-30 15:29 | CT Report ---
PROCEDURE: Abdomen/Pelvis W INDICATIONS: DIVERTICULITIS CONTRAST: IV CONTRAST: Optiray 320 ml: 100 PO CONTRAST: Optiray 320 ml50 TECHNIQUE: After the administration of 100 cc Optiray 320 IV contrast, 5 mm thick sections acquired from the calin phragms to the symphysis. 5 mm thick coronal and sagittal reformats were acquired. For radiation do se reduction, the following was used: automated exposure control, adjustment of mA and/or kV accordi ng to patient size. COMPARISON: 03/31/2020 FINDINGS: Image quality: Excellent. ABDOMEN: Lung bases: Lung bases are clear. Heart size is normal. Solid organs: Liver and spleen are normal in size and enhancement. Gallbladder is normal Biliary s ystem is non dilated. Pancreas enhances normally. No adrenal nodules. Kidneys demonstrate normal s ize and enhancement, without hydronephrosis. Peritoneum and bowel: The descending and sigmoid colon are relatively decompressed. There is slight mucosal enhancement throughout the descending and sigmoid colon. The sigmoid colon demonstrates mild circumferential long segment wall thickening and occasional diverticula. There is no surrounding infl ammatory change, fluid collection, or extraluminal gas. Bowel loops demonstrate normal wall thickness and caliber. No free fluid or air. Nodes and vessels: No retroperitoneal or mesenteric adenopathy by size criteria. Aorta and inferior vena cava are normal in size. Miscellaneous: No ventral hernias. PELVIS: Genitourinary: Bladder wall thickness is normal. Miscellaneous: No inguinal hernias or adenopathy. Bones: No suspicious bony lesions. No vertebral body compression fractures. IMPRESSION: 1. Sigmoid diverticulosis with changes to suggest chronic inflammation. Inflammatory wall thickening is less extensive compared to the prior study. 2. Mild mucosal enhancement of the descending and sigmoid colon is nonspecific and may be related to decompression, less likely mild colitis . Correlate with any active symptoms. 3. Reviewed by: Shirin Eagle MD on 05/30/2020 3:28 PM PDT Approved by: Shirin Eagle MD on 05/30/2020 3:28 PM PDT Station ID: [id number]
== END 2020-05-30 10:38 | disposition home or self-care (01) ==
LOC: DI 10:37
PROVIDERS: ATTEND Registered Nurse
DX: K57.92 Diverticulitis of intestine, part unspecified, without perforation or abscess without bleeding (principal); I80.8 Phlebitis and thrombophlebitis of other sites; I82.611 Acute embolism and thrombosis of superficial veins of right upper extremity
CPT/HCPCS: 74177; 93971; Q9967

== ENCOUNTER 2021-04-19 14:09 | Emergency (ER) | payer MEDICAID ==
--- NOTE | 2021-04-19 14:33 | ED Physician Documentation ---
PD HPI ABD PAIN - Stated complaint Stated Complaint: ABD PX - Chief complaint Chief Complaint: Abd Pain - History obtained from History obtained from: Patient - History of Present Illness Timing - onset: How many days ago (5) Timing - duration: Days (5) Timing - details: Gradual onset, Still present, Waxing and waning (improved yesterday but back again today.) Quality: Cramping, Aching, Pain Location: LLQ Radiation: No: Left flank Improved by: BM, Other (urinating) Associated symptoms: Nausea. No: Fever, Vomiting, Diarrhea (but is somewhat loose.), Constipation Similar symptoms before: Diagnosis (feeling similar to prior diverticulitis.) Recently seen: Not recently seen Review of Systems Constitutional: denies: Fever, Chills Nose: denies: Rhinorrhea / runny nose, Congestion Throat: denies: Sore throat Respiratory: denies: Cough GI: reports: Abdominal Pain, Nausea, Constipation. denies: Vomiting, Bloody / black stool : reports: Frequency. denies: Dysuria Skin: denies: Rash PD PAST MEDICAL HISTORY - Past Medical History Cardiovascular: None Respiratory: None Neuro: None Endocrine/Autoimmune: None GI: GERD, Other : None HEENT: None Psych: None Musculoskeletal: None Derm: Other - Past Surgical History Past Surgical History: Yes General: Other Ortho: ACL reconstruction - Present Medications Home Medications: Ambulatory Orders Medication Instructions Recorded Confirmed Cyclobenzaprine [Flexeril] 10 mg PO TID PRN 03/29/20 03/29/20 Multivit-Min/Iron/Folic Acid/K 1 tab PO DAILY 03/29/20 03/29/20 [Adults Multivitamin Tablet] Ciprofloxacin HCl [Cipro] 500 mg PO BID #28 tablet 03/31/20 Ciprofloxacin HCl [Cipro] 500 mg PO BID #28 tablet 03/31/20 methocarbamoL [Robaxin] 500 mg PO Q6HR PRN tablet 03/31/20 metroNIDAZOLE [Flagyl] 500 mg PO TID #42 tablet 03/31/20 metroNIDAZOLE [Flagyl] 500 mg PO TID #42 tablet 03/31/20 HYDROcod/ACETAM 5/325 [[place] 5/325] 1 ea PO Q6H PRN #14 tablet 04/19/21 Naproxen 250 mg PO TID 5 Days #15 tablet 04/19/21 Sulfamethox/Trimeth 800/160 1 each PO BID #10 tablet 04/19/21 [Bactrim Ds 800/160] metroNIDAZOLE [Flagyl] 500 mg PO BID #10 tablet 04/19/21 - Allergies Allergies/Adverse Reactions: Allergies Allergy/AdvReac Type Severity Reaction Status Date / Time Penicillins Allergy Rash Verified 04/19/21 14:26 - Social History Does the pt smoke?: No Smoking Status: Former smoker Does the pt drink ETOH?: Yes Does the pt have substance abuse?: No - Immunizations Immunizations are current?: Yes - POLST Patient has POLST: No PD ED PE NORMAL - Vitals Vital signs reviewed: Yes - General General: Alert and oriented X 3, No acute distress, Well developed/nourished - Neck Neck: Supple, no meningeal sign, No adenopathy - Cardiac Cardiac: RRR, No murmur - Respiratory Respiratory: Clear bilaterally - Abdomen Abdomen: Normal bowel sounds, Soft, Non distended, Other (tender LLQ area with mild local guarding, but no percussion/ rebound/ referred tenderness. ) - Male Male : Deferred - Rectal Rectal: Deferred - Back Back: No CVA TTP - Derm Derm: Normal color, Warm and dry Results - Vitals Vitals: Oxygen O2 Source Room air - Labs Labs: Laboratory Tests 04/19/21 04/19/21 04/19/21 14:35 14:35 15:03 WBC 10.7 RBC 4.44 L Hgb 14.6 Hct 40.8 L MCV 91.9 MCH 32.9 H MCHC 35.8 RDW 11.1 L Plt Count 268 MPV 9.3 Neut # (Auto) 7.8 H Lymph # (Auto) 1.9 [place] # (Auto) 0.7 Eos # (Auto) 0.1 Baso # (Auto) 0.1 Absolute Nucleated RBC 0.00 Nucleated RBC % 0.0 Sodium 134 L Potassium 3.8 Chloride 96 L Carbon Dioxide 25 Anion Gap 13.0 BUN 7 Creatinine 0.7 Estimated GFR (MDRD) 120 Glucose 111 H Calcium 8.9 Total Bilirubin 0.9 AST 23 ALT 21 Alkaline Phosphatase 69 Total Protein 7.7 Albumin 4.2 Globulin 3.5 Albumin/Globulin Ratio 1.2 Lipase 24 Urine Color YELLOW Urine Clarity CLEAR Urine pH 5.0 Ur Specific [place] <=1.005 Urine Protein NEGATIVE Urine Glucose (UA) NEGATIVE Urine Ketones NEGATIVE Urine Occult Blood NEGATIVE Urine Nitrite NEGATIVE Urine Bilirubin NEGATIVE Urine Urobilinogen 0.2 (NORMAL) Ur Leukocyte Esterase NEGATIVE Ur Microscopic Review NOT INDICATED Urine Culture Comments NOT INDICATED PD MEDICAL DECISION MAKING - ED course Complexity details: considered differential (abd exam locally tender without peritoneal signs. UA negative. Shared decision to empirically treat as uncomplicated diverticulitis. ), d/w patient Departure - Departure Disposition: 01 Home, Self Care Clinical Impression: Lower abdominal pain, Diverticulitis Condition: Stable Record reviewed to determine appropriate education?: Yes Instructions: ED Diverticulitis Follow-Up: Meme Anguiano ARNP [Primary Care Provider] - Prescriptions: Sulfamethox/Trimeth 800/160 [Bactrim Ds 800/160] 1 each PO BID #10 tablet metroNIDAZOLE [Flagyl] 500 mg PO BID #10 tablet Naproxen 250 mg PO TID 5 Days #15 tablet HYDROcod/ACETAM 5/325 [[place] 5/325] 1 ea PO Q6H PRN #14 tablet PRN Reason: Pain Comments: Jazmin lewis [place] Your urine test is normal. Your white count on your blood test is good. Your exam does not suggest a complicated diverticulitis such as abscess or perforation. We can treat this as a diverticulitis episode with Bactrim and metronidazole antibiotics as directed. Also naproxen anti-inflammatory. Stay well-hydrated. Add Tylenol or hydrocodone as needed for worse pain. Recheck if not improved well over the next few days. Return if worse. Discharge Date/Time: 04/19/21 16:00
[2021-04-19 14:48] LABS: BASOPHILS # (AUTO) 0.1 10^3/uL (0.0-0.1); BASOPHILS % (AUTO) 0.7 %; EOSINOPHILS # (AUTO) 0.1 10^3/uL (0.0-0.7); EOSINOPHILS % (AUTO) 1.2 %; HCT - HEMATOCRIT 40.8 % (42.0-52.0); HGB - HEMOGLOBIN 14.6 g/dL (14.0-18.0); LYMPHOCYTES # (AUTO) 1.9 10^3/uL (1.5-3.5); LYMPHOCYTES % (AUTO) 17.7 %; MEAN CORPUSCULAR HEMOGLOBIN 32.9 pg (27.0-31.0); MEAN CORPUSCULAR HGB CONC 35.8 g/dL (32.0-36.0); MEAN CORPUSCULAR VOLUME 91.9 fL (80.0-94.0); MEAN PLATELET VOLUME 9.3 fL (7.4-11.4); MONOCYTES # (AUTO) 0.7 10^3/uL (0.0-1.0); MONOCYTES % (AUTO) 6.9 %; NEUTROPHILS # (AUTO) 7.8 10^3/uL (1.5-6.6); NEUTROPHILS % (AUTO) 73.2 %; PLT - PLATELET COUNT 268 10^3/uL (130-450); RED BLOOD COUNT 4.44 10^6/uL (4.70-6.10); RED CELL DISTRIBUTION WIDTH 11.1 % (12.0-15.0); WHITE BLOOD COUNT 10.7 x10^3/uL (4.8-10.8)
[2021-04-19] MEDS ORDERED: HYDROcod/ACETAM 5/325 MG TABLET PO STA (14:54)
[2021-04-19] MEDS ORDERED: metroNIDAZOLE 250 MG TABLET PO STA (14:54)
[2021-04-19] MEDS ORDERED: SULFAMETH/TRIMETH DS 800/160 MG TABLET PO STA (14:54)
[2021-04-19] MEDS ORDERED: NAPROXEN 250 MG TABLET PO STA (14:55)
[2021-04-19 14:56] LABS: ALBUMIN 4.2 g/dL (3.2-5.5); ALBUMIN/GLOBULIN RATIO 1.2 (1.0-2.2); BILIRUBIN,TOTAL 0.9 mg/dL (0.2-1.0); CALCIUM 8.9 mg/dL (8.5-10.3); CREATININE 0.7 mg/dL (0.6-1.2); POTASSIUM 3.8 mmol/L (3.5-5.0); TOTAL PROTEIN 7.7 g/dL (6.7-8.2)
[2021-04-19 15:24] LABS: BILIRUBIN,URINE NEGATIVE (NEGATIVE); GLUCOSE, URINE (UA) NEGATIVE (NEGATIVE); KETONES,URINE (UA) NEGATIVE (NEGATIVE); LEUKOCYTE ESTERASE, URINE NEGATIVE (NEGATIVE); NITRITE,URINE NEGATIVE (NEGATIVE); OCCULT BLOOD,URINE NEGATIVE (NEGATIVE); PROTEIN,URINE NEGATIVE (NEGATIVE); UROBILINOGEN,URINE 0.2 (NORMAL) E.U./dL (NORMAL)
[2021-04-19 15:29] LABS: CLARITY,URINE CLEAR (CLEAR)
[2021-04-19 15:59] VITALS: BP 112/72
== END 2021-04-19 16:00 | disposition home or self-care (01) ==
LOC: ED 14:09
DX: K57.92 Diverticulitis of intestine, part unspecified, without perforation or abscess without bleeding (principal)
CPT/HCPCS: 36415; 80053; 81003; 83690; 85025; 99283; 99284; A9270; 81001; 87086

== ENCOUNTER 2021-09-28 10:51 | Outpatient (CLI) | payer MEDICAID ==
--- NOTE | 2021-09-28 15:47 | XRAY Report ---
PROCEDURE: Hand 2 View BILAT INDICATIONS: OSTEOARTHRITIS TECHNIQUE: 4 views of the hand(s) acquired. COMPARISON: None FINDINGS: Bones: No fractures or dislocations. No suspicious bony lesions. Mild interphalangeal joint and MC P joint osteoarthritic changes are seen with joint space narrowing and subchondral sclerosis worse on the right side. Subcortical radiolucencies are noted involving ulnar aspect of right third metacarpa l head and right fourth metacarpal head. No abnormal radiolucency is seen in left hand. Soft tissues: No suspicious soft tissue calcifications. IMPRESSION: Mild osteoarthritis in bilateral MCP joints and interphalangeal joints. Radiolucencies in right third and fourth metacarpal heads concerning for erosion secondary to inflammatory arthropathy. No definit e erosive changes are seen in left hand. Reviewed by: Nader Botello MD on 09/28/2021 3:46 PM PST Approved by: Nader Botello MD on 09/28/2021 3:46 PM PST Station ID: [id number]
--- NOTE | 2021-09-28 15:49 | XRAY Report ---
PROCEDURE: Knee Standing BILAT INDICATIONS: KNEE PAIN, RIGHT TECHNIQUE: 2 views of the right knee, and 2 views of the left knee. COMPARISON: None. FINDINGS: Bones: There is prior right ACL repair. Increased radiolucency surrounding surgical hardware within lateral femoral condyle and medial portion of proximal tibia is seen concerning for hardware loosenin g. No acute fractures or dislocations. No suspicious bony lesions. Mild to moderate bilateral tricom partmental osteoarthritis is seen slightly worse on the right side. Soft tissues: Small right suprapatellar joint effusion is seen. No suspicious soft tissue calcificat ion. IMPRESSION: 1. Prior right ACL repair with postsurgical changes. Increased radiolucency surrounding surgical hard mcguire within right lateral femoral condyle and medial portion of proximal tibia concerning for hardwar e loosening. 2. Right worse than left bilateral tricompartmental osteoarthritis. No acute fracture or dislocation. Small right suprapatellar joint effusion. Reviewed by: Nader Botello MD on 09/28/2021 3:48 PM PST Approved by: Nader Botello MD on 09/28/2021 3:48 PM PST Station ID: [id number]
== END 2021-09-28 10:52 | disposition home or self-care (01) ==
LOC: DI.S 10:51
PROVIDERS: ATTEND Registered Nurse
DX: M19.041 Primary osteoarthritis, right hand (principal); M19.042 Primary osteoarthritis, left hand; M17.0 Bilateral primary osteoarthritis of knee; M25.461 Effusion, right knee

== ENCOUNTER 2022-02-18 08:00 | Outpatient (CLI) | payer MEDICAID ==
--- NOTE | 2022-02-18 13:13 | XRAY Report ---
PROCEDURE: Chest 2 View X-Ray INDICATIONS: LEFT CHEST PAIN TECHNIQUE: 2 view(s) of the chest. COMPARISON: None. FINDINGS: Surgical changes and devices: None. Lungs and pleura: No pleural effusions or pneumothorax. Lungs are clear. Mediastinum: Mediastinal contours are normal. Heart size is normal. Bones and chest wall: There is an anterior wedge deformity of T7 and possibly T6. Chronicity of these is uncertain, however endplates are slightly sclerotic and this is likely subacute to remote. Soft t issues appear unremarkable. IMPRESSION: 1. No acute cardiopulmonary disease. 2. Probably chronic T6 and T7 compression fracture deformities. No definite acute fractures. Reviewed by: Shirin Eagle MD on 02/18/2022 1:12 PM PDT Approved by: Shirin Eagle MD on 02/18/2022 1:12 PM PDT Station ID: [id number]
== END 2022-02-18 23:59 | disposition home or self-care (01) ==
LOC: DI.S 08:00
PROVIDERS: ATTEND Registered Nurse
DX: R07.89 Other chest pain (principal); M06.4 Inflammatory polyarthropathy
CPT/HCPCS: 36415; 80053; 81374; 81599; 82784; 85025; 86705; 86709; 86803; 87340

== ENCOUNTER 2022-02-18 10:53 | Outpatient (CLI) | payer MEDICAID ==
[2022-02-18 14:28] LABS: BASOPHILS # (AUTO) 0.1 10^3/uL (0.0-0.1); BASOPHILS % (AUTO) 0.9 %; EOSINOPHILS # (AUTO) 0.2 10^3/uL (0.0-0.7); EOSINOPHILS % (AUTO) 3.9 %; HCT - HEMATOCRIT 44.3 % (42.0-52.0); HGB - HEMOGLOBIN 15.7 g/dL (14.0-18.0); LYMPHOCYTES # (AUTO) 1.7 10^3/uL (1.5-3.5); MEAN CORPUSCULAR HEMOGLOBIN 32.9 pg (27.0-31.0); MEAN CORPUSCULAR HGB CONC 35.4 g/dL (32.0-36.0); MEAN CORPUSCULAR VOLUME 92.9 fL (80.0-94.0); MEAN PLATELET VOLUME 10.1 fL (7.4-11.4); MONOCYTES # (AUTO) 0.5 10^3/uL (0.0-1.0); MONOCYTES % (AUTO) 8.8 %; NEUTROPHILS # (AUTO) 3.2 10^3/uL (1.5-6.6); NEUTROPHILS % (AUTO) 56.2 %; PLT - PLATELET COUNT 205 10^3/uL (130-450); RED BLOOD COUNT 4.77 10^6/uL (4.70-6.10); RED CELL DISTRIBUTION WIDTH 11.9 % (12.0-15.0); WHITE BLOOD COUNT 5.7 x10^3/uL (4.8-10.8)
[2022-02-18 14:47] LABS: ALBUMIN 4.3 g/dL (3.2-5.5); ALBUMIN/GLOBULIN RATIO 1.5 (1.0-2.2); BILIRUBIN,TOTAL 1.6 mg/dL (0.2-1.0); CALCIUM 9.2 mg/dL (8.5-10.3); CREATININE 0.8 mg/dL (0.6-1.2); POTASSIUM 3.8 mmol/L (3.5-5.0); TOTAL PROTEIN 7.1 g/dL (6.7-8.2)
[2022-02-19 03:08] LABS: HBsAG SCREEN Negative (Negative); HCV AB <0.1 s/co ratio (0.0-0.9); HEPATITIS B CORE IGM AB Negative (Negative)
[2022-02-19 04:08] LABS: IMMUNOGLOBULIN A 255 mg/dL (90-386); IMMUNOGLOBULIN G 868 mg/dL (603-1613); IMMUNOGLOBULIN M 96 mg/dL (20-172)
== END 2022-02-18 10:54 | disposition home or self-care (01) ==
LOC: LAB.S 10:53
PROVIDERS: ATTEND Registered Nurse
DX: M06.4 Inflammatory polyarthropathy (principal)
CPT/HCPCS: 36415; 80053; 81374; 81599; 82784; 85025; 86705; 86709; 86803; 87340

== ENCOUNTER 2022-06-18 09:32 | Outpatient (CLI) | payer MEDICAID | END 2022-06-18 09:33 | disposition home or self-care (01) | LOC: LAB.S 09:32 | PROVIDERS: ATTEND Registered Nurse | DX: R73.9 Hyperglycemia, unspecified (principal) | CPT/HCPCS: 36415; 82947 ==

== ENCOUNTER 2022-08-29 11:06 | Emergency (ER) | payer MEDICAID ==
[2022-08-29 11:28] VITALS: BP 153/97
--- OUTSIDE RECORDS SUMMARY | 2022-08-29 11:35 | EXTERNAL MEDICAL SUMMARY RPT | Continuity of Care Document ---
:1970 Author Organization [facility] Address [address] [place] [address] Phone Care Team Providers Name Role Phone Unavailable Unavailable Unavailable Meme Hendricks Unavailable Unavailable Allergies No information. Encounters No information. Functional Status No information. Immunizations No information. Medications date description facility 2022-08-05 00:00 cephalexin [facility] 2022-08-07 00:00 diclofenac sodium [facility] 2022-06-19 00:00 amitriptyline [facility] 2022-06-21 00:00 amitriptyline [facility] 2022-08-07 00:00 amitriptyline [facility] 2022-08-09 00:00 amitriptyline [facility] 2022-08-05 00:00 cephalexin [facility] 2022-06-19 00:00 amitriptyline [facility] 2022-06-21 00:00 amitriptyline [facility] 2022-08-07 00:00 amitriptyline [facility] 2022-08-09 00:00 amitriptyline [facility] 2022-08-05 00:00 cephalexin [facility] 2022-08-05 00:00 cephalexin [facility] 2022-08-05 00:00 moxifloxacin [facility] 2022-08-07 00:00 diclofenac sodium [facility] 2022-06-19 00:00 amitriptyline [facility] 2022-06-21 00:00 amitriptyline [facility] 2022-08-07 00:00 amitriptyline [facility] 2022-08-09 00:00 amitriptyline [facility] 2022-08-07 00:00 diclofenac sodium [facility] 2022-08-05 00:00 moxifloxacin [facility] 2022-08-05 00:00 moxifloxacin [facility] 2022-08-07 00:00 diclofenac sodium [facility] [place] 2022-06-19 00:00 amitriptyline [facility] [place] 2022-06-21 00:00 amitriptyline [facility] 2022-08-07 00:00 amitriptyline [facility] 2022-08-09 00:00 amitriptyline [facility] 2022-08-05 00:00 moxifloxacin [facility] [place] Problems date description facility 2022-06-19 00:00 Herpes simplex without mention of [facility] complication [facility] [place] 2022-06-19 00:00 Herpes labialis [facility] [place] 2022-06-19 00:00 Injury of muscle and tendon at [facility] & thorax level [facility] 2022-06-19 00:00 H/O: thrombosis [facility] [place] 2022-06-19 00:00 Seasonal allergy [facility] [place] 2022-06-19 00:00 Allergic rhinitis, cause [facility] & unspecified [facility] [place] 2022-06-19 00:00 Herpesviral vesicular dermatitis [facility] [place] 2022-06-19 00:00 Other seasonal allergic rhinitis [facility] [place] 2022-06-19 00:00 Strain of muscle and tendon of [facility] & front wall of thorax, sequela [facility] [place] 2022-06-19 00:00 Personal history of venous [facility] & thrombosis and embolism [facility] 2022-06-19 00:00 Personal history of other venous [facility] & thrombosis and embolism [facility] 2022-06-21 00:00 Herpes simplex without mention of [facility] & complication [facility] gutiérrez 2022-06-21 00:00 Herpes labialis [facility] guti[facility] 2022-06-21 00:00 Injury of muscle and tendon at [facility] Primary Care & thorax level [facility] treviñomarla 2022-06-21 00:00 H/O: thrombosis [facility] [place] 2022-06-21 00:00 Seasonal allergy [facility] [place] 2022-06-21 00:00 Allergic rhinitis, cause [facility] & unspecified [facility] guti[facility]rez 2022-06-21 00:00 Herpesviral vesicular dermatitis [facility] guti[facility]rez 2022-06-21 00:00 Other seasonal allergic rhinitis [facility] 2022-06-21 00:00 Strain of muscle and tendon of [facility] & front wall of thorax, sequela [facility] [place] 2022-06-21 00:00 Personal history of venous [facility] & thrombosis and embolism [facility] 2022-06-21 00:00 Personal history of other venous [facility] & thrombosis and embolism [facility] 2022-08-05 00:00 Preseptal cellulitis [facility] [place] gutiérrez 2022-08-05 00:00 Abscess of eyelid [facility] [place] 2022-08-05 00:00 Abscess of eyelid unspecified eye, [facility] & unspecified eyelid [facility] 2022-08-07 00:00 Herpes simplex without mention of [facility] & complication [facility] [place] 2022-08-07 00:00 Herpes labialis [facility] 2022-08-07 00:00 Injury of muscle and tendon at [facility] Primary Care & thorax level [facility] 2022-08-07 00:00 H/O: thrombosis [facility] 2022-08-07 00:00 Seasonal allergy [facility] 2022-08-07 00:00 Allergic rhinitis, cause [facility] Care & unspecified [facility] 2022-08-07 00:00 Herpesviral vesicular dermatitis [facility] 2022-08-07 00:00 Other seasonal allergic rhinitis [facility] 2022-08-07 00:00 Strain of muscle and tendon of [facility] Primary Care & front wall of thorax, sequela [facility] [place] 2022-08-07 00:00 Personal history of venous [facility] & thrombosis and embolism [facility] 2022-08-07 00:00 Personal history of other venous [facility] & thrombosis and embolism [facility] 2022-08-09 00:00 Herpes simplex without mention of [facility] & complication [facility] 2022-08-09 00:00 Herpes labialis [facility] 2022-08-09 00:00 Injury of muscle and tendon at [facility] Primary Care & thorax level [facility] 2022-08-09 00:00 H/O: thrombosis [facility] 2022-08-09 00:00 Seasonal allergy [facility] 2022-08-09 00:00 Allergic rhinitis, cause [facility] & unspecified [facility] [place] 2022-08-09 00:00 Herpesviral vesicular dermatitis [facility] [place] 2022-08-09 00:00 Other seasonal allergic rhinitis [facility] [place] 2022-08-09 00:00 Strain of muscle and tendon of [facility] Care & front wall of thorax, sequela [facility] 2022-08-09 00:00 Personal history of venous [facility] thrombosis and embolism [facility] 2022-08-09 00:00 Personal history of other venous [facility] & thrombosis and embolism [facility] [place] Procedures date description facility 2022-08-05 00:00 Visit Code Hold [facility] Results/Labs No information. Social History No information. Vital Signs date measurement value units 2022-08-05 00:00 BMI 23.02 kg/m2 2022-08-05 00:00 BP_diastolic 87 mmHg 2022-08-05 00:00 BP_systolic 131 mmHg 2022-08-05 00:00 heart_rate 74 /min 2022-08-05 00:00 height_metric 168.91 cm 2022-08-05 00:00 height_standard 66.5 in 2022-08-05 00:00 respiration_rate 16 /min 2022-08-05 00:00 temperature_metric 37.11 C 2022-08-05 00:00 temperature_standard 98.8 F 2022-08-05 00:00 weight_metric 65.45 kg 2022-08-05 00:00 weight_standard 144.3 lb
--- NOTE | 2022-08-29 11:52 | ED Physician Documentation ---
PD HPI HEAD INJURY - Stated complaint Stated Complaint: GLF, L EAR PAIN - Chief complaint Chief Complaint: Laceration - History obtained from History obtained from: Patient - History of Present Illness Mechanism of head injury: Fell (he states he slipped on icy step and fell, striking ear on railing with laceration to helix area. here today as bled again and he wonders if needs sutures.) Timing - onset: Last night Location of injury: Left (ear) Associated symptoms: No: LOC, AMS, Nausea / vomiting, Neck pain Contributing factors: No: Anticoagulated Similar symptoms before: Has not had sx before Review of Systems Neurologic: denies: Focal weakness, Numbness, Near syncope, Altered mental status, Headache PD PAST MEDICAL HISTORY - Past Medical History Cardiovascular: None Respiratory: None Neuro: None Endocrine/Autoimmune: None GI: GERD, Other : None HEENT: None Psych: None Musculoskeletal: None Derm: Other - Past Surgical History Past Surgical History: Yes General: Other Ortho: ACL reconstruction - Present Medications Home Medications: Ambulatory Orders Medication Instructions Recorded Confirmed Cyclobenzaprine [Flexeril] 10 mg PO TID PRN 03/29/20 03/29/20 Multivit-Min/Iron/Folic Acid/K 1 tab PO DAILY 03/29/20 03/29/20 [Adults Multivitamin Tablet] Ciprofloxacin HCl [Cipro] 500 mg PO BID #28 tablet 03/31/20 Ciprofloxacin HCl [Cipro] 500 mg PO BID #28 tablet 03/31/20 methocarbamoL [Robaxin] 500 mg PO Q6HR PRN tablet 03/31/20 metroNIDAZOLE [Flagyl] 500 mg PO TID #42 tablet 03/31/20 metroNIDAZOLE [Flagyl] 500 mg PO TID #42 tablet 03/31/20 HYDROcod/ACETAM 5/325 [Avery 5/325] 1 ea PO Q6H PRN #14 tablet 04/19/21 Naproxen 250 mg PO TID 5 Days #15 tablet 04/19/21 Sulfamethox/Trimeth 800/160 1 each PO BID #10 tablet 04/19/21 [Bactrim Ds 800/160] metroNIDAZOLE [Flagyl] 500 mg PO BID #10 tablet 04/19/21 - Allergies Allergies/Adverse Reactions: Allergies Allergy/AdvReac Type Severity Reaction Status Date / Time Penicillins Allergy Rash Verified 08/29/22 11:28 - Social History Does the pt smoke?: No Smoking Status: Former smoker Does the pt drink ETOH?: Yes Does the pt have substance abuse?: No - Immunizations Immunizations are current?: Yes - POLST Patient has POLST: No PD ED PE NORMAL - Vitals Vital signs reviewed: Yes - General General: Alert and oriented X 3, No acute distress, Well developed/nourished - HEENT HEENT: Other (left inner helix area with 1 cm laceration not expossing the cartilage and without fb. No bleeding at this time. ) - Derm Derm: Normal color, Warm and dry Results - Vitals Vitals: Oxygen O2 Source Room air Procedures - Laceration (location) left ear helix Length in cm: 1 Wound type: Linear, Into subcut fat, Clean Wound preparation: Wound explored, To the base Skin layer closure: Dermabond, Steri strips PD Medical Decision Making - ED course Complexity details: considered differential (the laceration does not epxose cartilage, and is not bleeding at this time. I feel it can be held/closed with steri-strips and dermabond. Shared discussion with the patient.), d/w patient Departure - Departure Disposition: 01 Home, Self Care Clinical Impression: Fall from slip, trip, or stumble, Laceration of helix of left ear Condition: Stable Record reviewed to determine appropriate education?: Yes Instructions: ED Laceration Facial Skin Glue Follow-Up: Meme Anguiano ARNP [Primary Care Provider] - Comments: Keep the area clean and dry and allow the tape and glue to fall off on their own after several days or so. That should be time enough for her to of sealed over and healed enough to stay closed. It will take about a week or so to really heal up strongly. Recheck if signs of infection though fairly uncommon in the ears and face. Tylenol ibuprofen if needed for pains. Discharge Date/Time: 08/29/22 12:12
== END 2022-08-29 12:12 | disposition home or self-care (01) ==
LOC: ED 11:06
DX: S01.312A Laceration without foreign body of left ear, initial encounter (principal); W00.1XXA Fall from stairs and steps due to ice and snow, initial encounter; Z87.891 Personal history of nicotine dependence
CPT/HCPCS: 12011; 99281